=== PATIENT | male | born 1995 | race African-American/Black ===

== ENCOUNTER 2023-03-25 01:21 | Emergency (ER) | payer OTHER ==
[~2023-03-25] VITALS: Ht 175.3 cm; Wt 93.2 kg
[2023-03-25 01:51] VITALS: BP 137/100; PULSE 65; RESP 14; TEMP 98.1; O2SAT 100
[2023-03-25] MEDS ORDERED: DOXY-356 PO (04:20)
== END 2023-03-25 04:35 | disposition home or self-care (01) ==
LOC: ER 01:22
DX: A64 Unspecified sexually transmitted disease (principal)
CPT/HCPCS: 99283